=== PATIENT | female | born 1995 | race Two or more races ===

== ENCOUNTER 2017-08-30 19:45 | Emergency (ER) | payer MEDICAID, OTHER, SELFPAY ==
[~2017-08-30] VITALS: Ht 167.6 cm; Wt 71.5 kg
[2017-08-30 19:54] VITALS: BP 106/69
== END 2017-08-30 21:11 | disposition home or self-care (01) ==
LOC: ED 21:05
DX: N30.00 Acute cystitis without hematuria (principal)
CPT/HCPCS: 81001; 87077; 87086; 87186; 99284

== ENCOUNTER 2017-10-03 23:25 | Emergency (ER) | payer SELFPAY ==
[~2017-10-03] VITALS: Ht 167.6 cm; Wt 72.3 kg
[2017-10-03 23:27] VITALS: BP 123/77
[2017-10-04 00:26] LABS: MICROSCOPIC NOT IND
[2017-10-04 00:28] LABS: CULTURE INDICATED? NO
[2017-10-04 00:40] LABS: BASOPHILS # (AUTO) 0.08 x10^3/uL (0-0.3); BASOPHILS % (AUTO) 1 % (0-1); EOSINOPHILS # (AUTO) 0.13 x10^3/uL (0-0.8); EOSINOPHILS % (AUTO) 1 % (1-7); LYMPHOCYTES # (AUTO) 2.83 x10^3/uL (1-6.1); LYMPHOCYTES % (AUTO) 31 % (22-44); MD NO; MEAN CORPUSCULAR HEMOGLOBIN 29.8 pg (27.0-34.8); MEAN CORPUSCULAR HGB CONC 33.9 g/dL (32.4-35.8); MEAN CORPUSCULAR VOLUME 88.1 fL (80-100); MEAN PLATELET VOLUME 10.2 fL (7.4-10.4); MONOCYTES # (AUTO) 0.62 x10^3/uL (0-1.4); MONOCYTES % (AUTO) 7 % (2-9); NEUTROPHILS # (AUTO) 5.51 x10^3/uL (1.8-8.0); NEUTROPHILS % (AUTO) 60 % (42-75); PLATELET COUNT 222 x10^3/uL (130-400); RED BLOOD COUNT 4.91 x10^6/uL (3.82-5.3); RED CELL DISTRIBUTION WIDTH 12.9 % (9.6-15.2)
[2017-10-04 00:49] LABS: ALANINE AMINOTRANSFERASE 20 U/L (12-78); ALBUMIN 4.1 g/dL (3.4-5.0); ANION GAP 9 mmol/L (5-15); CALCIUM 8.5 mg/dL (8.5-10.1); CHLORIDE 106 mmol/L (98-107); CREATININE 0.62 mg/dL (0.55-1.02)
[2017-10-04 00:58] LABS: CLUE CELLS NONE SEEN (NONE SEEN); WET PREP WBCS NONE SEEN (FEW)
[2017-10-04 01:06] LABS: ALKALINE PHOSPHATASE 62 U/L (45-117); BILIRUBIN,TOTAL 0.2 mg/dL (0.2-1.0); TOTAL PROTEIN 7.4 g/dL (6.4-8.2)
== END 2017-10-04 01:41 | disposition home or self-care (01) ==
LOC: ED 23:59
DX: O26.891 Other specified pregnancy related conditions, first trimester (principal); O23.591 Infection of other part of genital tract in pregnancy, first trimester; Z3A.01 Less than 8 weeks gestation of pregnancy
CPT/HCPCS: 36415; 76830; 80053; 81003; 84702; 85025; 87210; 87491; 87591; 87808; 99285

== ENCOUNTER 2017-10-17 10:05 | Emergency (ER) | payer OTHER ==
[~2017-10-17] VITALS: Ht 167.6 cm; Wt 70.5 kg
[2017-10-17 11:01] LABS: BASOPHILS # (AUTO) 0.03 x10^3/uL (0-0.3); BASOPHILS % (AUTO) 0 % (0-1); EOSINOPHILS # (AUTO) 0.05 x10^3/uL (0-0.8); EOSINOPHILS % (AUTO) 1 % (1-7); LYMPHOCYTES # (AUTO) 1.65 x10^3/uL (1-6.1); LYMPHOCYTES % (AUTO) 22 % (22-44); MD NO; MEAN CORPUSCULAR HEMOGLOBIN 29.7 pg (27.0-34.8); MEAN CORPUSCULAR HGB CONC 33.7 g/dL (32.4-35.8); MEAN CORPUSCULAR VOLUME 88.2 fL (80-100); MEAN PLATELET VOLUME 9.1 fL (7.4-10.4); MONOCYTES # (AUTO) 0.36 x10^3/uL (0-1.4); MONOCYTES % (AUTO) 5 % (2-9); NEUTROPHILS # (AUTO) 5.41 x10^3/uL (1.8-8.0); NEUTROPHILS % (AUTO) 72 % (42-75); PLATELET COUNT 235 x10^3/uL (130-400); RED BLOOD COUNT 4.83 x10^6/uL (3.82-5.3); RED CELL DISTRIBUTION WIDTH 13.1 % (9.6-15.2)
[2017-10-17 11:12] LABS: ALANINE AMINOTRANSFERASE 19 U/L (12-78); ANION GAP 8 mmol/L (5-15); CALCIUM 8.7 mg/dL (8.5-10.1); CHLORIDE 106 mmol/L (98-107)
[2017-10-17 11:15] LABS: ALKALINE PHOSPHATASE 42 U/L (45-117); BILIRUBIN,TOTAL 0.3 mg/dL (0.2-1.0); TOTAL PROTEIN 7.4 g/dL (6.4-8.2)
[2017-10-17 11:21] LABS: MICROSCOPIC NOT IND
[2017-10-17 11:25] LABS: CULTURE INDICATED? NO
[2017-10-17 11:30] VITALS: BP 120/74
[2017-10-17] MEDS ORDERED: [UNRECOGNIZED DRUG - REMARK] (11:32)
== END 2017-10-17 12:30 | disposition home or self-care (01) ==
LOC: ED 11:32
DX: O20.0 Threatened abortion (principal); O26.891 Other specified pregnancy related conditions, first trimester; M54.5 Low back pain; Z3A.09 9 weeks gestation of pregnancy
CPT/HCPCS: 36415; 76801; 80053; 81003; 85025; 86901; 99285